=== PATIENT | female | born 1970 | race Caucasian/White ===

== ENCOUNTER 2016-12-29 19:31 | Emergency (ER) | payer BC ==
[~2016-12-29 19:31] MED LIST: ALLEGRA DPS180 MG PO; DAILY MULTIPLE1 EAC1 PO; FLONASE 0.05% D16 GM NS; KEFLEX500 MG PO; LEVOTHYROXINE50 MCG PO; NORCO 5-325 TA1 EACH PO; PRILOSEC DPS20 MG PO; VALIUM-DPS2 MG PO; VITAMIN B-121000 MCG SQ; ZOFRAN4 MG PO
--- NOTE | 2017-01-08 23:29 | ER ---
ADMIT: 12/29/2016 RM/LOC: ER [facility] MR#: [id number] [address] [id number] BANDAR RODRIGUEZ [address] [place] [id number] Emergency Room Report SEX: F AGE: 46 : 1970 DATE: 12/29/2016 ADDENDUM: CHIEF COMPLAINT: Constipation. HISTORY OF PRESENT ILLNESS: This is a 46-year-old, who had a double mastectomy on the 06 of December. She has been taking pain meds. She has titrated herself down from Percocet now into tramadol, but she has had some extensive constipation with this. Her last bowel movement was 5 days ago, so she is just trying to get more uncomfortable on her belly, so she came into the ER. COURSE IN THE EMERGENCY ROOM: I did give her enema here in the emergency room. At this time, we are awaiting to see her results. Afterwards, I am going to let her go home, have her push fluids. She has been setting her alarm for her meds, I told her to stop doing that. Continue her MiraLax b.i.d. and follow up with the PCP as needed. CLINICAL IMPRESSION: Constipation. MCKINLEY Escobedo / Johnson Pelayo MD / ha JOB #: [id number] CC: Johnson Pelayo MD, Attending Physician
== END 2016-12-29 22:05 | disposition home or self-care (01) ==
LOC: ER 19:31
DX: K59.00 Constipation, unspecified (principal); Z85.3 Personal history of malignant neoplasm of breast; Z79.899 Other long term (current) drug therapy